=== PATIENT | male | born 1980 | race American Indian/Alaskan Native ===

== ENCOUNTER 2020-12-11 21:13 | Emergency (ER) | payer OTHER ==
[~2020-12-11] VITALS: Ht 170.2 cm; Wt 77.0 kg
[~2020-12-11 21:13] MED LIST: FLOMAX0.4 MG PO; NORCO 5-325 TA1 EACH PO
[2020-12-11] MEDS ORDERED: HYDROCODON-ACE1 EA10 PO (23:31)
== END 2020-12-12 00:09 | disposition home or self-care (01) ==
LOC: ED 21:13
DX: N13.2 Hydronephrosis with renal and ureteral calculous obstruction (principal); F17.200 Nicotine dependence, unspecified, uncomplicated
CPT/HCPCS: 74177; 80053; 81001; 83690; 85025; 99284-25; Q9967